=== PATIENT | male | born 1960 | race Caucasian/White ===

== ENCOUNTER → 2019-02-15 | Outpatient (CLI) | payer OTHER ==
[~2019-02-15] MED LIST: Zithromax250 MG PO
[2019-02-15 10:51] LABS: BASOPHILS ABSOLUTE AUTO 0.09 K/mm3 (0.00-0.23); BASOPHILS PERCENT AUTO 1 % (0-2); EOSINOPHILS ABSOLUTE AUTO 0.27 K/mm3 (0.00-0.68); EOSINOPHILS PERCENT AUTO 2 % (0-6); Hemoglobin 15.9 g/dL (13.5-17.5); IMMATURE GRAN ABSOLUTE AUTO 0.04 K/mm3 (0.00-0.10); IMMATURE GRAN PERCENT AUTO 0 % (0-1); LYMPHOCYTES ABSOLUTE AUTO 3.58 K/mm3 (0.84-5.20); LYMPHOCYTES PERCENT AUTO 30 % (21-46); MONOCYTES ABSOLUTE AUTO 1.09 K/mm3 (0.16-1.47); MONOCYTES PERCENT AUTO 9 % (4-13); Mean Corpuscular HGB 27.5 pg (26.0-34.0); Mean Corpuscular HGB Conc 32.4 g/dL (31.5-36.5); Mean Corpuscular Volume 85 fL (80-100); Mean Platelet Volume 9.5 fL (9.1-12.4); NEUTROPHILS ABSOLUTE AUTO 7.06 K/mm3 (1.96-9.15); NEUTROPHILS PERCENT AUTO 58 % (41-73); Platelet Count 249 K/mm3 (150-400); RDW Coefficient Variation 13.2 % (11.7-14.2); RDW Standard Deviation 41.1 fL (35.1-46.3); Red Blood Cell Count 5.78 M/mm3 (4.30-5.90); White Blood Cell Count 12.13 K/mm3 (4.00-11.30)
[2019-02-15 11:20] LABS: Alanine Aminotransfer (ALT/SGP 43 U/L (12-78); Albumin, Blood 3.5 g/dL (3.4-5.0); Albumin/Globulin Ratio 0.9 (0.8-1.8); Alk Phos 91 U/L (50-136); Anion Gap 7 mmol/L (6-16); Aspartate Aminotrans (AST/SGOT 19 U/L (12-37); Bilirubin, Total 0.2 mg/dL (0.1-1.0); Blood Urea Nitrogen 15 mg/dL (8-24); Bun/Creatinine Ratio 20.3 (12.0-20.0); CO2, Blood 25 mmol/L (21-32); Calcium, Blood 8.7 mg/dL (8.5-10.1); Chloride, Blood 109 mmol/L (98-108); Creatinine, Blood 0.74 mg/dL (0.60-1.20); Globulin, Blood 3.9 g/dL (2.2-4.0); Glomerular Filtration Rate >60 (60-); Glucose, Blood 136 mg/dL (70-99); Potassium, Blood 3.8 mmol/L (3.5-5.5); Sodium, Blood 141 mmol/L (136-145); Total Protein, Blood 7.4 g/dL (6.4-8.2)
== END ==
LOC: LAB SHORT 10:39 → LAB 10:39
PROVIDERS: Nurse Practitioner
DX: H53.8 Other visual disturbances (principal); E11.9 Type 2 diabetes mellitus without complications
CPT/HCPCS: 80053; 83036; 85025; 85651

== ENCOUNTER 2020-02-27 20:01 | Emergency (ER) | payer BC ==
[~2020-02-27] VITALS: Ht 175.3 cm; Wt 78.5 kg
[2020-02-27 21:21] LABS: BASOPHILS ABSOLUTE AUTO 0.07 K/mm3 (0.00-0.23); BASOPHILS PERCENT AUTO 1 % (0-2); EOSINOPHILS ABSOLUTE AUTO 0.42 K/mm3 (0.00-0.68); EOSINOPHILS PERCENT AUTO 4 % (0-6); Hematocrit 43.7 % (37.0-53.0); Hemoglobin 13.9 g/dL (13.5-17.5); IMMATURE GRAN ABSOLUTE AUTO 0.07 K/mm3 (0.00-0.10); IMMATURE GRAN PERCENT AUTO 1 % (0-1); LYMPHOCYTES ABSOLUTE AUTO 2.24 K/mm3 (0.84-5.20); LYMPHOCYTES PERCENT AUTO 22 % (21-46); MONOCYTES ABSOLUTE AUTO 1.05 K/mm3 (0.16-1.47); MONOCYTES PERCENT AUTO 10 % (4-13); Mean Corpuscular HGB 27.1 pg (26.0-34.0); Mean Corpuscular HGB Conc 31.8 g/dL (31.5-36.5); Mean Corpuscular Volume 85 fL (80-100); Mean Platelet Volume 8.9 fL (9.1-12.4); NEUTROPHILS ABSOLUTE AUTO 6.34 K/mm3 (1.96-9.15); NEUTROPHILS PERCENT AUTO 62 % (41-73); Platelet Count 214 K/mm3 (150-400); RDW Coefficient Variation 13.3 % (11.7-14.2); RDW Standard Deviation 41.8 fL (35.1-46.3); Red Blood Cell Count 5.13 M/mm3 (4.30-5.90); White Blood Cell Count 10.19 K/mm3 (4.00-11.30)
[2020-02-27 21:36] LABS: International Normalized Ratio 0.96; Prothrombin Time Results 10.3 Sec (9.7-11.5)
[2020-02-27 21:40] LABS: Alanine Aminotransfer (ALT/SGP 33 U/L (12-78); Albumin, Blood 2.9 g/dL (3.4-5.0); Albumin/Globulin Ratio 0.8 (0.8-1.8); Alk Phos 93 U/L (50-136); Anion Gap 4 mmol/L (6-16); Aspartate Aminotrans (AST/SGOT 21 U/L (12-37); Bilirubin, Total 0.1 mg/dL (0.1-1.0); Blood Urea Nitrogen 13 mg/dL (8-24); CO2, Blood 27 mmol/L (21-32); Calcium, Blood 8.1 mg/dL (8.5-10.1); Chloride, Blood 115 mmol/L (98-108); Creatinine, Blood 0.87 mg/dL (0.60-1.20); Globulin, Blood 3.5 g/dL (2.2-4.0); Glomerular Filtration Rate >60 (60-); Glucose, Blood 154 mg/dL (70-99); Potassium, Blood 3.9 mmol/L (3.5-5.5); Sodium, Blood 146 mmol/L (136-145); Total Protein, Blood 6.4 g/dL (6.4-8.2)
[2020-02-27] MEDS ORDERED: Norco 5-325 Ta1 EACH PO (21:42)
[2020-02-27] MEDS ORDERED: XARELTO15 MG PO (21:42)
== END 2020-02-27 22:33 | disposition home or self-care (01) ==
LOC: ER 20:01
PROVIDERS: Emergency Medicine
DX: I82.412 Acute embolism and thrombosis of left femoral vein (principal); I82.432 Acute embolism and thrombosis of left popliteal vein; F17.210 Nicotine dependence, cigarettes, uncomplicated; Z88.8 Allergy status to other drugs, medicaments and biological substances; Z91.018 Allergy to other foods
CPT/HCPCS: 36415; 80053; 85025; 85610; 85730; 93971; 99284-25; A9270

== ENCOUNTER → 2024-06-26 | Outpatient (CLI) | payer BC ==
[~2024-06-26] MED LIST changes: +Norco 5-325 Ta1 EACH PO; +XARELTO15 MG PO
[2024-06-26 15:40] LABS: BASOPHILS ABSOLUTE AUTO 0.08 K/mm3 (0.00-0.23); BASOPHILS PERCENT AUTO 1 % (0-2); EOSINOPHILS ABSOLUTE AUTO 0.15 K/mm3 (0.00-0.68); EOSINOPHILS PERCENT AUTO 1 % (0-6); Hematocrit 49.5 % (37.0-53.0); Hemoglobin 15.9 g/dL (13.5-17.5); IMMATURE GRAN ABSOLUTE AUTO 0.05 K/mm3 (0.00-0.10); IMMATURE GRAN PERCENT AUTO 0 % (0-1); LYMPHOCYTES ABSOLUTE AUTO 1.51 K/mm3 (0.84-5.20); LYMPHOCYTES PERCENT AUTO 11 % (21-46); MONOCYTES ABSOLUTE AUTO 1.14 K/mm3 (0.16-1.47); MONOCYTES PERCENT AUTO 8 % (4-13); Mean Corpuscular HGB 27.7 pg (26.0-34.0); Mean Corpuscular HGB Conc 32.1 g/dL (31.5-36.5); Mean Corpuscular Volume 86 fL (80-100); Mean Platelet Volume 8.9 fL (9.1-12.4); NEUTROPHILS PERCENT AUTO 79 % (41-73); Platelet Count 230 K/mm3 (150-400); RDW Standard Deviation 43.9 fL (35.1-46.3); Red Blood Cell Count 5.73 M/mm3 (4.30-5.90); White Blood Cell Count 13.73 K/mm3 (4.00-11.30)
[2024-06-26 15:51] LABS: Albumin, Blood 3.1 g/dL (3.4-5.0); Albumin/Globulin Ratio 0.7 (0.8-1.8); Bilirubin, Total 0.4 mg/dL (0.1-1.0); Bun/Creatinine Ratio 13.1 (12.0-20.0); Calcium, Blood 8.4 mg/dL (8.5-10.1); Creatinine, Blood 1.07 mg/dL (0.60-1.20); Globulin, Blood 4.5 g/dL (2.2-4.0); Total Protein, Blood 7.6 g/dL (6.4-8.2)
== END | disposition home or self-care (01) ==
LOC: LAB SHORT 15:36 → LAB 15:36
PROVIDERS: Physician Assistant Medical
DX: R07.81 Pleurodynia (principal)
CPT/HCPCS: 80053; 85025; 85379

== ENCOUNTER 2025-01-25 07:10 | Emergency (ER) | payer BC ==
[~2025-01-25] VITALS: Ht 175.3 cm; Wt 81.7 kg
[2025-01-25] MEDS ORDERED: Metoclopramide HCl 5MG / ML 2ML Vial IV ONE (07:30)
[2025-01-25 07:42] LABS: BASOPHILS ABSOLUTE AUTO 0.12 K/mm3 (0.00-0.23); BASOPHILS PERCENT AUTO 1 % (0-2); EOSINOPHILS ABSOLUTE AUTO 0.14 K/mm3 (0.00-0.68); EOSINOPHILS PERCENT AUTO 1 % (0-6); Hematocrit 46.4 % (37.0-53.0); Hemoglobin 15.5 g/dL (13.5-17.5); IMMATURE GRAN ABSOLUTE AUTO 0.09 K/mm3 (0.00-0.10); IMMATURE GRAN PERCENT AUTO 1 % (0-1); LYMPHOCYTES ABSOLUTE AUTO 3.54 K/mm3 (0.84-5.20); LYMPHOCYTES PERCENT AUTO 19 % (21-46); MONOCYTES ABSOLUTE AUTO 1.24 K/mm3 (0.16-1.47); MONOCYTES PERCENT AUTO 7 % (4-13); Mean Corpuscular HGB 27.7 pg (26.0-34.0); Mean Corpuscular HGB Conc 33.4 g/dL (31.5-36.5); Mean Corpuscular Volume 83 fL (80-100); Mean Platelet Volume 9.3 fL (9.1-12.4); NEUTROPHILS ABSOLUTE AUTO 13.13 K/mm3 (1.96-9.15); NEUTROPHILS PERCENT AUTO 72 % (41-73); Platelet Count 269 K/mm3 (150-400); RDW Coefficient Variation 13.8 % (11.7-14.2); RDW Standard Deviation 41.8 fL (35.1-46.3); Red Blood Cell Count 5.59 M/mm3 (4.30-5.90); White Blood Cell Count 18.26 K/mm3 (4.00-11.30)
[2025-01-25] MEDS ORDERED: Pantoprazole Sodium 40 MG Injection IV ONE (07:50)
[2025-01-25] MEDS ORDERED: FentaNYL Citrate 50 MCG/ML 2 ML Injection IV ONE ×2 (07:50→10:15)
[2025-01-25] MEDS ORDERED: NiCARdipine HCL 50 MG in NS 250 ML IV SCH (07:50)
[2025-01-25 08:01] LABS: Albumin, Blood 3.4 g/dL (3.4-5.0); Albumin/Globulin Ratio 0.9 (0.8-1.8); Bilirubin, Total 0.2 mg/dL (0.1-1.0); Bun/Creatinine Ratio 25.2 (12.0-20.0); Calcium, Blood 8.6 mg/dL (8.5-10.1); Creatinine, Blood 0.79 mg/dL (0.60-1.20); Globulin, Blood 3.8 g/dL (2.2-4.0); Potassium, Blood 3.8 mmol/L (3.5-5.5); Total Protein, Blood 7.2 g/dL (6.4-8.2)
[2025-01-25] MEDS ORDERED: Ondansetron HCl 2 MG / ML 2ML Vial IV ONE (08:40)
--- NOTE | 2025-01-25 09:14 | NUR ---
Aki (pt) is awake but unable to communicate verbally. Pt appears drowsy. Pt was admitted for a brain hemmorage and is soon to be discharged to [facility] for further care. Pt is joined at bedside by Wilfred(spouse) and her sister. Spouse has a clear deysi connection and uses this to inform her perspective on her current situation. She remains hopeful in the midst of uncertainty. Provided compassionate listening and normalized pt's spouse's experience and prayed with her. She thanked me and ammunition storekeeper sabin who was also present.
[2025-01-25 11:00] VITALS: BP 146/92
== END 2025-01-25 11:05 | disposition home or self-care (01) ==
LOC: ER 07:10
PROVIDERS: Student in an Organized Health Care Education/Training Program
DX: I61.4 Nontraumatic intracerebral hemorrhage in cerebellum (principal); I82.402 Acute embolism and thrombosis of unspecified deep veins of left lower extremity; Z79.01 Long term (current) use of anticoagulants; Z86.711 Personal history of pulmonary embolism; Z88.8 Allergy status to other drugs, medicaments and biological substances; Z79.82 Long term (current) use of aspirin; F17.200 Nicotine dependence, unspecified, uncomplicated
CPT/HCPCS: 70450; 70496; 70498; 80053; 83690; 83735; 85025; 93005; 93010; 96374; 96375; 96376; 99285-25; J2405; J2470; J2765; J3010; J7050; J7168; Q9967

== ENCOUNTER 2025-02-21 09:30 | Inpatient (IN) | payer BC ==
[~2025-02-21] VITALS: Ht 175.3 cm; Wt 70.4 kg
[2025-02-21 10:42] LABS: BASOPHILS ABSOLUTE AUTO 0.04 K/mm3 (0.00-0.23); BASOPHILS PERCENT AUTO 0 % (0-2); EOSINOPHILS ABSOLUTE AUTO 0.29 K/mm3 (0.00-0.68); EOSINOPHILS PERCENT AUTO 3 % (0-6); Hematocrit 48.9 % (37.0-53.0); Hemoglobin 16.2 g/dL (13.5-17.5); IMMATURE GRAN ABSOLUTE AUTO 0.05 K/mm3 (0.00-0.10); IMMATURE GRAN PERCENT AUTO 1 % (0-1); LYMPHOCYTES ABSOLUTE AUTO 1.64 K/mm3 (0.84-5.20); LYMPHOCYTES PERCENT AUTO 15 % (21-46); MONOCYTES ABSOLUTE AUTO 1.05 K/mm3 (0.16-1.47); MONOCYTES PERCENT AUTO 10 % (4-13); Mean Corpuscular HGB 27.6 pg (26.0-34.0); Mean Corpuscular HGB Conc 33.1 g/dL (31.5-36.5); Mean Corpuscular Volume 83 fL (80-100); Mean Platelet Volume 8.8 fL (9.1-12.4); NEUTROPHILS ABSOLUTE AUTO 7.73 K/mm3 (1.96-9.15); NEUTROPHILS PERCENT AUTO 72 % (41-73); Platelet Count 155 K/mm3 (150-400); RDW Coefficient Variation 13.4 % (11.7-14.2); RDW Standard Deviation 40.8 fL (35.1-46.3); Red Blood Cell Count 5.88 M/mm3 (4.30-5.90)
[2025-02-21 11:03] LABS: Albumin, Blood 2.8 g/dL (3.4-5.0); Albumin/Globulin Ratio 0.7 (0.8-1.8); Bilirubin, Total 0.7 mg/dL (0.1-1.0); Bun/Creatinine Ratio 23.1 (12.0-20.0); Calcium, Blood 8.6 mg/dL (8.5-10.1); Creatinine, Blood 0.65 mg/dL (0.60-1.20); Globulin, Blood 3.8 g/dL (2.2-4.0); Potassium, Blood 4.3 mmol/L (3.5-5.5); Total Protein, Blood 6.6 g/dL (6.4-8.2)
[2025-02-21 11:16] LABS: International Normalized Ratio 1.02; Prothrombin Time Results 10.9 Sec (9.7-11.5)
[2025-02-21] MEDS ORDERED: Ondansetron HCl 2 MG / ML 2ML Vial IV PRN (14:45)
[2025-02-21] MEDS ORDERED: Scopolamine Hydrobromide Patch TOP SCH (15:05)
[2025-02-21] MEDS ORDERED: Meclizine HCl 25 MG Tab PO PRN (15:10)
[2025-02-21] MEDS ORDERED: OxyCODONE HCL 5 MG TAB PO PRN (15:15)
[2025-02-21 15:53] VITALS: BP 115/75
[2025-02-21] MEDS ORDERED: Acetaminophen 325 MG TABLET PO PRN (16:30)
--- NOTE | 2025-02-21 18:55 | NUR ---
SHIFT SUMMARY; ASSUMED CARE FROM ED IN LATE AFTERNOON. TRANSFERS SELF FROM GURNEY TO BED WITH 1 PERSON ASSIST. FAMILY AT BEDSIDE. MEDICATED PER EMAR FOR NAUSEA AND HEADACHE. DINNER TRAY PROVIDED, USING CALL LIGHT AND ABLE TO MAKE NEEDS KNOWN. WILL CONTINUE TO MONITOR AND TREAT UNTIL REPORT GIVEN TO NOC SHIFT RN. MRI SCREENING FORM FAXED TO RADIOLOGY.
[2025-02-21 20:21] VITALS: BP 111/67
[2025-02-21] MEDS ORDERED: Tamsulosin HCl 0.4 MG Cap PO SCH (21:00)
[2025-02-21] MEDS ORDERED: Methocarbamol 500 MG Tab PO SCH (21:00)
[2025-02-21 23:20] VITALS: BP 91/68
[2025-02-22 04:14] VITALS: BP 108/79
--- NOTE | 2025-02-22 05:37 | NUR ---
SHIFT SUMMARY PATIENT SOMNULENT BUT WAKES EASILY TO VERBAL STIMULI. PATIENT REQUESTING TO BE LEFT ALONE DURING THE NIGHT TO SLEEP. NO NEURO CHANGES DURING THE NIGHT. BP STABLE. TELE READING SR 60s. ON RA WITH SPO2 >90%. PATIENT MEDICATED PRIOR TO MANAGER SUPPORT FOR NAUSEA, HAS DENIED NAUSEA ALL OF MANAGER SUPPORT. STANDBY ASSIST IN ROOM/BATHROOM, ADEQUATE OUTPUT. PATIENT AWAITNG MRI THIS MORNING, SCREENING TO BE COMPLETED AND FAXED BACK TO IMAGING. NO OTHER CHANGES DURING THE NIGHT, WILL REPORT TO DAY SHIFT RN.
[2025-02-22 07:49] VITALS: BP 107/70
[2025-02-22 08:39] LABS: BASOPHILS ABSOLUTE AUTO 0.04 K/mm3 (0.00-0.23); BASOPHILS PERCENT AUTO 1 % (0-2); EOSINOPHILS ABSOLUTE AUTO 0.29 K/mm3 (0.00-0.68); EOSINOPHILS PERCENT AUTO 3 % (0-6); Hematocrit 45.3 % (37.0-53.0); Hemoglobin 14.9 g/dL (13.5-17.5); IMMATURE GRAN ABSOLUTE AUTO 0.03 K/mm3 (0.00-0.10); IMMATURE GRAN PERCENT AUTO 0 % (0-1); LYMPHOCYTES ABSOLUTE AUTO 1.17 K/mm3 (0.84-5.20); LYMPHOCYTES PERCENT AUTO 14 % (21-46); MONOCYTES ABSOLUTE AUTO 0.81 K/mm3 (0.16-1.47); MONOCYTES PERCENT AUTO 9 % (4-13); Mean Corpuscular HGB 27.3 pg (26.0-34.0); Mean Corpuscular HGB Conc 32.9 g/dL (31.5-36.5); Mean Corpuscular Volume 83 fL (80-100); Mean Platelet Volume 9.2 fL (9.1-12.4); NEUTROPHILS ABSOLUTE AUTO 6.25 K/mm3 (1.96-9.15); NEUTROPHILS PERCENT AUTO 73 % (41-73); Platelet Count 135 K/mm3 (150-400); RDW Coefficient Variation 13.6 % (11.7-14.2); Red Blood Cell Count 5.46 M/mm3 (4.30-5.90); White Blood Cell Count 8.59 K/mm3 (4.00-11.30)
[2025-02-22 08:56] LABS: Bun/Creatinine Ratio 16.7 (12.0-20.0); Calcium, Blood 8.5 mg/dL (8.5-10.1); Creatinine, Blood 0.72 mg/dL (0.60-1.20); Potassium, Blood 4.1 mmol/L (3.5-5.5)
[2025-02-22] MEDS ORDERED: Atorvastatin 40 MG Tab PO SCH (09:00)
--- NOTE | 2025-02-22 10:06 | NUR ---
Care assumption Pt A&O x4. NIH stroke scale: 0. Pt rating headache 11/15. VSS. Spo2 > 92% on RA. Monitor showing SR w/ BBB, HR 70s-80s. Pt reporting "I feel a lot better." Pt awaiting MRI of head.
[2025-02-22 11:40] VITALS: BP 111/71
[2025-02-22 15:02] VITALS: BP 111/70
--- NOTE | 2025-02-22 17:17 | NUR ---
MD NOTIFIED PT UP TO BATHROOM, REPORTING FEELING NAUSEOUS. THIS RN GAVE PRN IV ZOFRAN PER EMAR. PT THEN ASSISTED BACK TO BED FROM BATHROOM W/ PT REPORT THEN OF FEELING DIZZY. PT ASSISTED TO SIT ON EDGE OF BED. PT SITTING UPRIGHT ON EDGE OF BED, TALKING TO S/O THEN SUDDENLY FELL BACK ON BED, UNRESPONSIVE. MONITOR NOTED W/ HR DROP TO 50s. PT MAKING SNORING SOUND. PT YELLING "HE'S HAVING A SEIZURE!" NO SEIZURE LIKE ACTIVITY NOTED. PT LIPS/FACE LOST COLOR, TURNING PURPLE/BLUE. PT REPOSITIONED SECURELY IN BED W/ HOB ELEVATED. PT NOT BREATHING. AMBU BAG READIED, BUT PT THEN WAKING, OPENING EYES & BREATHING ON OWN. MD TO BEDSIDE. PT REPORTING PAIN LOWER ABD & STATING FEELING NEED TO POOP. MD ORDER FOR LABS. PT VSS. SPO2 > 92% ON RA. MONITOR SHOWING NSR. PT REPORTING FEELING TIRED.
[2025-02-22] MEDS ORDERED: Bisacodyl 10 MG Supp PR PRN (17:20)
[2025-02-22 17:36] LABS: BASOPHILS ABSOLUTE AUTO 0.04 K/mm3 (0.00-0.23); BASOPHILS PERCENT AUTO 0 % (0-2); EOSINOPHILS ABSOLUTE AUTO 0.26 K/mm3 (0.00-0.68); EOSINOPHILS PERCENT AUTO 2 % (0-6); Hematocrit 49.5 % (37.0-53.0); Hemoglobin 16.3 g/dL (13.5-17.5); IMMATURE GRAN ABSOLUTE AUTO 0.05 K/mm3 (0.00-0.10); IMMATURE GRAN PERCENT AUTO 1 % (0-1); LYMPHOCYTES ABSOLUTE AUTO 1.29 K/mm3 (0.84-5.20); LYMPHOCYTES PERCENT AUTO 12 % (21-46); MONOCYTES ABSOLUTE AUTO 0.61 K/mm3 (0.16-1.47); MONOCYTES PERCENT AUTO 6 % (4-13); Mean Corpuscular HGB 27.2 pg (26.0-34.0); Mean Corpuscular HGB Conc 32.9 g/dL (31.5-36.5); Mean Corpuscular Volume 83 fL (80-100); Mean Platelet Volume 8.9 fL (9.1-12.4); NEUTROPHILS ABSOLUTE AUTO 8.82 K/mm3 (1.96-9.15); NEUTROPHILS PERCENT AUTO 80 % (41-73); Platelet Count 137 K/mm3 (150-400); RDW Coefficient Variation 13.6 % (11.7-14.2); RDW Standard Deviation 40.9 fL (35.1-46.3); Red Blood Cell Count 5.99 M/mm3 (4.30-5.90); White Blood Cell Count 11.07 K/mm3 (4.00-11.30)
[2025-02-22 18:19] LABS: Albumin, Blood 2.8 g/dL (3.4-5.0); Albumin/Globulin Ratio 0.7 (0.8-1.8); Bilirubin, Total 0.6 mg/dL (0.1-1.0); Bun/Creatinine Ratio 25.1 (12.0-20.0); Calcium, Blood 8.4 mg/dL (8.5-10.1); Creatinine, Blood 0.68 mg/dL (0.60-1.20); Globulin, Blood 3.8 g/dL (2.2-4.0); Potassium, Blood 4.1 mmol/L (3.5-5.5); Total Protein, Blood 6.6 g/dL (6.4-8.2)
--- NOTE | 2025-02-22 18:33 | NUR ---
Update / End of Shift Pt provided w/ suppository per MD order. Pt then w/ extra large, incontinent loose brown BM in bed. Pt reporting feeling "worn out." VSS. S/o at bedside.
[2025-02-22 21:09] VITALS: BP 134/83
[2025-02-22 23:35] LABS: Adenovirus F 40/41 Not Detected (NOT DETECT); Astrovirus Not Detected (NOT DETECT); Campylobacter Sp Not Detected (NOT DETECT); Cryptosporidium Not Detected (NOT DETECT); Cyclospora Cayetanensis Not Detected (NOT DETECT); E. Coli O157 Not Detected (NOT DETECT); Entamoeba Histolytica Not Detected (NOT DETECT); Enteroaggregative E. coli-EAEC Not Detected (NOT DETECT); Enteropathogenic E. coli-EPEC Not Detected (NOT DETECT); Enterotoxigenic E. coli-ETEC Not Detected (NOT DETECT); Giardia Lamblia Not Detected (NOT DETECT); Norovirus GI/GII Not Detected (NOT DETECT); Plesiomonas Shigelloides Not Detected (NOT DETECT); Rotavirus A Not Detected (NOT DETECT); Salmonella Sp Not Detected (NOT DETECT); Sapovirus Not Detected (NOT DETECT); Shiga Toxin-prod E. coli-STEC Not Detected (NOT DETECT); Shigella/Enteroin E. coli-EIEC Not Detected (NOT DETECT); Vibrio Cholerae Not Detected (NOT DETECT); Vibrio Sp Not Detected (NOT DETECT); Yersinia Enterocolitica Not Detected (NOT DETECT)
[2025-02-22 23:41] LABS: Source, Urine Clean Catch
[2025-02-22 23:44] LABS: Bilirubin, Urine Neg (Neg); Blood, Urine 5+ (Neg); Glucose Qualitative, Urine Neg (Neg); Ketones, Urine 1+ (Neg); Leukocyte Esterase, Urine 1+ (Neg); Nitrite, Urine Neg (Neg); Protein, Urine 4+ (Neg); Urobilinogen, Urine NORM (Normal); pH, Urine 6.5 (5.0-8.0)
[2025-02-22 23:45] VITALS: BP 132/83
[2025-02-22 23:51] LABS: Appearance, Urine Turbid (Clear); Bacteria Rare /hpf; Color, Urine Red (P-Yellow); Red Blood Cells, Urine TNTC /hpf (0-2); Squamous Epithelial Cells Rare /hpf (Few)
[2025-02-23] MEDS ORDERED: CefTRIAXone Sodium 1,000 MG in NS 100 ML IV SCH (00:29)
--- NOTE | 2025-02-23 01:10 | NUR ---
UPDATE PATIENT VOIDED 250MLs INTO URINAL AND SHOWED THIS RN. PATIENT ALSO STATING HE FEELS IF HE IS URINATING SHARDS OF GLASS. URINE IS DARK MAROON IN COLOR. CALL PLACED TO HOSPITALIST WITH KATHERINE. UA COLLECTED AND SENT TO LAB. 0030 - ORDERS PLACED FOR CONTINUOUS BLADDER IRRGATION AND IV ANTIBIOTICS. 3 WAY HUNT PLACED AND CBI SET UP. ABOUT 50mls DARK URINE OUT, IRRIGATED UNTIL CLEAR LIQUID DRAINING. PATIENT TOLERATED PROCEDURE WELL.
[2025-02-23 04:11] VITALS: BP 106/75
--- NOTE | 2025-02-23 05:51 | NUR ---
SHIFT SUMMARY PATIENT ALERT, ORIENTED x4. PATIENT REPORTING FEELING DISORIENTED BUT IS ABLE TO ANSWER ALL QUESTIONS AND ABLE TO MAKE NEEDS KNOWN. NIH NEGATIVE. BP STABLE. TELE READING SR. ON RA WITH SPO2 >90%. SEE PREVIOUS NOTE REGARDING PATIENT'S URINE. BLADDER IRRIGATION SET UP WITH 3 WAY HUNT. INTERMITTENTLY FLUSHING AT THIS TIME. URINE WAS ORIGINALLY DARK MAROON IN COLOR, NOW LIGHT PINK/ORANGE WITH OCCASIONAL CLOTS. PATIENT TOLERATING WELL. MEDICATED PER EMAR FOR PAIN. PATIENT WITH EPISODES OF DIARRHEA, STOOL SAMPLE SENT. NO OTHER CHANGES DURING THE NIGHT, WILL REPORT TO DAY SHIFT RN.
[2025-02-23 06:08] LABS: BASOPHILS ABSOLUTE AUTO 0.05 K/mm3 (0.00-0.23); BASOPHILS PERCENT AUTO 0 % (0-2); EOSINOPHILS ABSOLUTE AUTO 0.01 K/mm3 (0.00-0.68); EOSINOPHILS PERCENT AUTO 0 % (0-6); Hematocrit 47.3 % (37.0-53.0); IMMATURE GRAN ABSOLUTE AUTO 0.07 K/mm3 (0.00-0.10); IMMATURE GRAN PERCENT AUTO 0 % (0-1); LYMPHOCYTES ABSOLUTE AUTO 0.92 K/mm3 (0.84-5.20); LYMPHOCYTES PERCENT AUTO 6 % (21-46); MONOCYTES ABSOLUTE AUTO 0.88 K/mm3 (0.16-1.47); MONOCYTES PERCENT AUTO 6 % (4-13); Mean Corpuscular HGB 27.5 pg (26.0-34.0); Mean Corpuscular HGB Conc 33.8 g/dL (31.5-36.5); Mean Corpuscular Volume 81 fL (80-100); Mean Platelet Volume 9.1 fL (9.1-12.4); NEUTROPHILS ABSOLUTE AUTO 13.89 K/mm3 (1.96-9.15); NEUTROPHILS PERCENT AUTO 88 % (41-73); Platelet Count 122 K/mm3 (150-400); RDW Coefficient Variation 13.8 % (11.7-14.2); RDW Standard Deviation 40.3 fL (35.1-46.3); Red Blood Cell Count 5.81 M/mm3 (4.30-5.90); White Blood Cell Count 15.82 K/mm3 (4.00-11.30)
[2025-02-23 06:28] LABS: Albumin, Blood 2.8 g/dL (3.4-5.0); Albumin/Globulin Ratio 0.7 (0.8-1.8); Bilirubin, Total 0.5 mg/dL (0.1-1.0); Bun/Creatinine Ratio 30.3 (12.0-20.0); Calcium, Blood 8.8 mg/dL (8.5-10.1); Creatinine, Blood 0.82 mg/dL (0.60-1.20); Globulin, Blood 4.1 g/dL (2.2-4.0); Total Protein, Blood 6.9 g/dL (6.4-8.2)
[2025-02-23 07:23] VITALS: BP 107/79
[2025-02-23] MEDS ORDERED: Heparin Sodium,Porcine 5,000 UNIT/0.5 ML SDV SC SCH (08:00)
[2025-02-23] MEDS ORDERED: Multivitamins 1 Tab PO SCH (09:00)
[2025-02-23 12:33] VITALS: BP 106/71
[2025-02-23 15:48] VITALS: BP 101/83
--- NOTE | 2025-02-23 18:23 | NUR ---
SHIFT SUMMARY PATIENT IS AOX4 ABLE TO MAKE NEEDS KNOWN. HE DENIES CHEST PAIN AND SOB. HE IS ABLE TO MOVE ALL EXTREMETIES EQUALLY AND DENIES ANY NUMBNESS OR TINGLING. HE DOES SAY HIS RIGHT SIDE FEELS WEAKER AND HIS DOUBLE VISION IS IMPROVED BUT STILL PRESENT. HE WAS ON CBI IN THE MORNING AND IT WAS REDUCED TO 1 DROP EVERY 10 SECONDS. URINE REMAINED YELLOW AND CLEAR. THE CBI WAS CLAMPED AT 1700. VITALS ARE STABLE AND O2 SATS REAMAIN ABOVE 92% ON ROOM AIR.
[2025-02-23 19:30] VITALS: BP 105/70
[2025-02-24] VITALS (7 sets, daily range): BP systolic 93–114; BP diastolic 62–79
[2025-02-24 04:17] LABS: BASOPHILS ABSOLUTE AUTO 0.06 K/mm3 (0.00-0.23); BASOPHILS PERCENT AUTO 1 % (0-2); EOSINOPHILS ABSOLUTE AUTO 0.43 K/mm3 (0.00-0.68); EOSINOPHILS PERCENT AUTO 4 % (0-6); Hematocrit 45.4 % (37.0-53.0); Hemoglobin 15.1 g/dL (13.5-17.5); IMMATURE GRAN ABSOLUTE AUTO 0.04 K/mm3 (0.00-0.10); IMMATURE GRAN PERCENT AUTO 0 % (0-1); LYMPHOCYTES ABSOLUTE AUTO 1.07 K/mm3 (0.84-5.20); LYMPHOCYTES PERCENT AUTO 10 % (21-46); MONOCYTES PERCENT AUTO 12 % (4-13); Mean Corpuscular HGB 27.5 pg (26.0-34.0); Mean Corpuscular HGB Conc 33.3 g/dL (31.5-36.5); Mean Corpuscular Volume 83 fL (80-100); Mean Platelet Volume 9.2 fL (9.1-12.4); NEUTROPHILS PERCENT AUTO 73 % (41-73); Platelet Count 111 K/mm3 (150-400); RDW Coefficient Variation 13.9 % (11.7-14.2); RDW Standard Deviation 41.8 fL (35.1-46.3); Red Blood Cell Count 5.49 M/mm3 (4.30-5.90)
--- NOTE | 2025-02-24 04:17 | NUR ---
SHIFT SUMMARY: PT IS ALERT AND ORIENTED X 4, REQUIRES EXTRA TIME BUT IS ABLE TO MKE NEEDS KNOWN, PT ENDORSES WEAKNESS TO R SIDE OF BODY BUT NEURO SHOWNS NO EVIDENCE OF DRIFT OR NEGLECT, LUNGS ARE CLEAR ON RA, NSR ON TELLE, CBI IN PLACE BUT CLAMMPED PT WITH YELLOW URINE NOTED, PRN PAIN MEDICATION GIVEN X1 THIS SHIFT, PT HAS CALL LIGHT AND FREQUENTLY USED ITEMS WITH IN REACH AT THIS ITME
[2025-02-24 04:46] LABS: Albumin, Blood 2.7 g/dL (3.4-5.0); Albumin/Globulin Ratio 0.7 (0.8-1.8); Bilirubin, Total 0.6 mg/dL (0.1-1.0); Bun/Creatinine Ratio 29.2 (12.0-20.0); Calcium, Blood 8.6 mg/dL (8.5-10.1); Creatinine, Blood 0.79 mg/dL (0.60-1.20); Globulin, Blood 3.8 g/dL (2.2-4.0); Potassium, Blood 4.4 mmol/L (3.5-5.5); Total Protein, Blood 6.5 g/dL (6.4-8.2)
[2025-02-24] MEDS ORDERED: Methocarbamol 500 MG Tab PO PRN (15:50)
--- NOTE | 2025-02-24 18:16 | NUR ---
CLIENT RELATIONS SPECIALIST SHIFT ASSESSMENT: PT IS ALERT AND ORIENTED X4, ABLE TO COMMUNICATE AND MAKE NEEDS KNOWN. TELE IN PLACE, SINUS TACH IN 100-110'S, PATIENT BECOMES MORE TACHYCARDIC WITH REPOSITIONING AND AMBULATION. SPO2 >90% ON RA, DIMINISHED BREATH SOUNDS NOTED THROUGHOUT. PATIENT REPORTS DOUBLE VISION AND NAUSEA DURING WHEN REPOSITIONING. PATIENT REPORTS CHRONIC BACK PAIN THAT IS BEING MANAGED PER EMAR AND NONPHARMACOLOGICAL INTERVENTIONS, PATIENT REPORTED RELIEF THROUGHOUT SHIFT. HUNT CATHETER REMOVED DURING SHIFT PER PROVIDER ORDERS, 300ML OF ZACHARY COLORED URINE NOTED IN BAG. PATIENT WAS ABLE TO VOID INDEPENDENTLY LATER IN SHIFT. PATIENT ABLE TO AMBULATE WITH ASSISTANCE, FREQUENT BREAKS ARE REQUIRED DUE TO TACHYCARDIA AND GENERALIZED WEAKNESS. PT/OT ASSESSED PATIENT TODAY, SEE NOTES IN CHART. PATIENT IS RESTING, BED IN LOWEST POSITION, CALL LIGHT WITHIN REACH.
[2025-02-24] MEDS ORDERED: Lactobacil 2-S.Thermo-Bifido 1 1 Cap PO SCH (21:00)
--- NOTE | 2025-02-24 21:43 | NUR ---
NURSES NOTE ASSUMED CARE OF PT AT 1900, PT ALERT AND ORIENTED X4, FOLLOWS COMMANDS, ABLE TO MAKE NEEDS KNOWN, AFEBRILE, VSS, PIV TO RIGHT HAND PATENT AND CLAMPED, NICK HAND GRASP EQUAL, GENERALIZED WEAKNESS NOTED, WEN C/O [place] AT THIS TIME, SCHEDULED MEDS GIVEN PO WITH PRN ROBAXIN FOR CHRONIC BACK PAIN, PT SWALLOWED WITHOUT DIFFICULTY, IVPB GIVEN, REPORT CALLED TO [facility] FOR TRANSFER TO ROOM 329
--- NOTE | 2025-02-24 22:40 | NUR ---
TRANSFER NOTE 64 YR OLD MALE RECEIVED FROM PCU WITH DX OF STROKE LIKE SYMPTOMS. REPORTED HX CVA WITH PREVIOUS CRANIOTOMY. ALERT TO QUESTIONS ASKED. DENIED LOSS OF FEELING. ORIENTED TO UE OF CALL LIGHT. CALL LIGHT IN REACH, RAILS UP X 3. BED IN LOW POSITION FOR SAFETY. WILL CONT TO MONITOR
--- NOTE | 2025-02-25 04:59 | NUR ---
Branch Manager Trainee Shift Summary Patient admitted for stroke like symptoms. Transferred to Med floor from PCU. VSS. Alert and oriented x4. NIH stroke scale score of 1 throughout the night. Cooperative with care. Denies loss of feeling. Bed rails up x2. Resting quietly between assessments. No apparent acute distress. Bed in lowest position for safetly, call light within reach. Will continue to monitor.
[2025-02-25 05:10] VITALS: BP 109/70
[2025-02-25 05:39] LABS: BASOPHILS ABSOLUTE AUTO 0.06 K/mm3 (0.00-0.23); BASOPHILS PERCENT AUTO 1 % (0-2); EOSINOPHILS PERCENT AUTO 4 % (0-6); Hematocrit 42.7 % (37.0-53.0); Hemoglobin 14.5 g/dL (13.5-17.5); IMMATURE GRAN ABSOLUTE AUTO 0.05 K/mm3 (0.00-0.10); IMMATURE GRAN PERCENT AUTO 1 % (0-1); LYMPHOCYTES ABSOLUTE AUTO 1.45 K/mm3 (0.84-5.20); LYMPHOCYTES PERCENT AUTO 15 % (21-46); MONOCYTES ABSOLUTE AUTO 1.11 K/mm3 (0.16-1.47); MONOCYTES PERCENT AUTO 11 % (4-13); Mean Corpuscular HGB 27.6 pg (26.0-34.0); Mean Corpuscular Volume 81 fL (80-100); Mean Platelet Volume 9.2 fL (9.1-12.4); NEUTROPHILS ABSOLUTE AUTO 6.96 K/mm3 (1.96-9.15); NEUTROPHILS PERCENT AUTO 69 % (41-73); Platelet Count 110 K/mm3 (150-400); RDW Standard Deviation 41.1 fL (35.1-46.3); Red Blood Cell Count 5.25 M/mm3 (4.30-5.90); White Blood Cell Count 10.03 K/mm3 (4.00-11.30)
[2025-02-25 06:03] LABS: Bun/Creatinine Ratio 34.7 (12.0-20.0); Calcium, Blood 8.7 mg/dL (8.5-10.1); Creatinine, Blood 0.61 mg/dL (0.60-1.20); Potassium, Blood 4.4 mmol/L (3.5-5.5)
[2025-02-25 07:27] VITALS: BP 109/68
[2025-02-25 11:26] VITALS: BP 105/71
[2025-02-25] MEDS ORDERED: NS 1,000 ML IV SCH (11:30)
[2025-02-25 15:30] VITALS: BP 124/66
[2025-02-25] MEDS ORDERED: ATOR80 PO (16:55)
[2025-02-25] MEDS ORDERED: TAMS.4ER PO (16:56)
[2025-02-25] MEDS ORDERED: TRANSDERM-SCOP1 EA10 TD (16:56)
--- NOTE | 2025-02-25 18:07 | NUR ---
NO ACUTE CHANGES, ALERT AND ORIENTED X4, CALLS APPROPRIATELY. PT IS WEAK 1 PERSON ASSIST, PLAN TO D/C TO SNF.
[2025-02-25 19:11] VITALS: BP 107/71
[2025-02-26 00:10] VITALS: BP 110/77
[2025-02-26 04:48] VITALS: BP 97/57
[2025-02-26 05:29] LABS: BASOPHILS ABSOLUTE AUTO 0.06 K/mm3 (0.00-0.23); BASOPHILS PERCENT AUTO 1 % (0-2); EOSINOPHILS ABSOLUTE AUTO 0.38 K/mm3 (0.00-0.68); EOSINOPHILS PERCENT AUTO 4 % (0-6); Hemoglobin 12.8 g/dL (13.5-17.5); IMMATURE GRAN ABSOLUTE AUTO 0.05 K/mm3 (0.00-0.10); IMMATURE GRAN PERCENT AUTO 1 % (0-1); LYMPHOCYTES ABSOLUTE AUTO 1.55 K/mm3 (0.84-5.20); LYMPHOCYTES PERCENT AUTO 17 % (21-46); MONOCYTES ABSOLUTE AUTO 1.08 K/mm3 (0.16-1.47); MONOCYTES PERCENT AUTO 12 % (4-13); Mean Corpuscular HGB 27.7 pg (26.0-34.0); Mean Corpuscular HGB Conc 33.7 g/dL (31.5-36.5); Mean Corpuscular Volume 82 fL (80-100); Mean Platelet Volume 9.3 fL (9.1-12.4); NEUTROPHILS ABSOLUTE AUTO 6.28 K/mm3 (1.96-9.15); NEUTROPHILS PERCENT AUTO 67 % (41-73); Platelet Count 109 K/mm3 (150-400); RDW Coefficient Variation 14.1 % (11.7-14.2); RDW Standard Deviation 41.9 fL (35.1-46.3); Red Blood Cell Count 4.62 M/mm3 (4.30-5.90)
[2025-02-26 05:52] LABS: Bun/Creatinine Ratio 19.6 (12.0-20.0); Calcium, Blood 8.3 mg/dL (8.5-10.1); Creatinine, Blood 0.71 mg/dL (0.60-1.20); Potassium, Blood 4.2 mmol/L (3.5-5.5)
--- NOTE | 2025-02-26 06:42 | NUR ---
SHIFT SUMMARY AT START OF SHIFT, SPOUSE AT BEDSIDE. PT LYING IN BED. 2039, PT STATED 5/10 PAIN IN LEFT SHOULDER. MEDICATED PER EMAR. PT WATCHING TV. CALL LIGHT IN REACH. UPON REASSESSMENT, PT STATED 0/10 PAIN. PT SLEEPING PEACEFULLY. CALL LIGHT WITHIN REACH. PT NS REPLACED. PT STILL SLEEPING SOUNDLY. CALL LIGHT WITHIN REACH. APPROX [id number], WHILE LAB IN ROOM, PT ARMBAND REPLACED. PT DENIED PAIN AT THIS TIME, BUT STATED HE WAS NAUSEOUS. PT MEDICATED PER EMAR. FORECLOSURE SPECIALIST BROUGHT IN FRESH ICE WATER. PT RESTING IN BED AT THIS TIME. CALL LIGHT WITHIN REACH.
[2025-02-26 07:31] VITALS: BP 110/84
[2025-02-26] MEDS ORDERED: Glycerin Adult Supp 1 EA PR ONE (10:55)
[2025-02-26 11:26] VITALS: BP 105/76
[2025-02-26] MEDS ORDERED: Acetaminophen325 M1 PO (11:58)
[2025-02-26] MEDS ORDERED: CEPH500 PO (11:59)
[2025-02-26] MEDS ORDERED: MOTION RELIEF25 MG PO (11:59)
[2025-02-26] MEDS ORDERED: VISBIOME 112.51 EACH PO (11:59)
--- NOTE | 2025-02-26 13:12 | NUR ---
[facility] given to abby marie. pt left with all personal items. alert and oriented x4, r/a
== END 2025-02-26 13:01 | DRG 65 ==
LOC: ER 09:30 → PCU 09:31 → MEDS 02-23 15:21 → PCU 02-23 15:21 → MEDS 02-24 21:50
PROVIDERS: Family Medicine; Internal Medicine; Nurse Practitioner Acute Care; Student in an Organized Health Care Education/Training Program; ADMIT Internal Medicine
DX: I63.81 Other cerebral infarction due to occlusion or stenosis of small artery (principal); E87.1 Hypo-osmolality and hyponatremia; G96.08 Other cranial cerebrospinal fluid leak; L76.32 Postprocedural hematoma of skin and subcutaneous tissue following other procedure; L76.34 Postprocedural seroma of skin and subcutaneous tissue following other procedure; N39.0 Urinary tract infection, site not specified; G81.91 Hemiplegia, unspecified affecting right dominant side; Y83.8 Other surgical procedures as the cause of abnormal reaction of the patient, or of later complication, without mention of misadventure at the time of the procedure; K59.00 Constipation, unspecified; H53.2 Diplopia; N40.0 Benign prostatic hyperplasia without lower urinary tract symptoms; E78.5 Hyperlipidemia, unspecified; F17.200 Nicotine dependence, unspecified, uncomplicated; R73.9 Hyperglycemia, unspecified; I45.10 Unspecified right bundle-branch block; R31.9 Hematuria, unspecified; R55 Syncope and collapse; D64.9 Anemia, unspecified; D69.6 Thrombocytopenia, unspecified; Z86.711 Personal history of pulmonary embolism; Z86.718 Personal history of other venous thrombosis and embolism; Z95.828 Presence of other vascular implants and grafts
CPT/HCPCS: 36415; 51700; 51702; 70450; 70496; 70498; 70551; 76857; 80048; 80053; 81001; 82607; 82746; 85025; 85610; 87077; 87086; 87186; 87507; 93005; 93010; 93306; 93971; 96365; 96375; 96376; 97110; 97112; 97116; 97162; 97166; 97535; 99285-25; A9270; G0378; J0696; J2405; J7030; Q9967

== ENCOUNTER 2025-03-19 09:14 | Emergency (ER) | payer BC ==
[~2025-03-19] VITALS: Ht 175.3 cm; Wt 66.2 kg
[~2025-03-19 09:14] MED LIST changes: +ALBU2.5V5 INH; +ATOR80 PO; +CEPH500 PO; +FAMO20 PO; +MASOPHEN325 M4 PO; +MIRALAX17 GM PO; +MOTION RELIEF25 MG PO; +ONDA4ODT MM; +SENN187 PO; +SIME80CH PO; +TAMS.4ER PO; +TRANSDERM-SCOP1 EA10 TD; +VISBIOME 112.51 EACH PO; +WARF3 PO
[2025-03-19 10:38] LABS: BASOPHILS PERCENT AUTO 1 % (0-2); EOSINOPHILS ABSOLUTE AUTO 0.09 K/mm3 (0.00-0.68); EOSINOPHILS PERCENT AUTO 1 % (0-6); Hematocrit 40.9 % (37.0-53.0); Hemoglobin 12.7 g/dL (13.5-17.5); IMMATURE GRAN ABSOLUTE AUTO 0.07 K/mm3 (0.00-0.10); IMMATURE GRAN PERCENT AUTO 1 % (0-1); LYMPHOCYTES ABSOLUTE AUTO 2.06 K/mm3 (0.84-5.20); LYMPHOCYTES PERCENT AUTO 25 % (21-46); MONOCYTES ABSOLUTE AUTO 1.16 K/mm3 (0.16-1.47); MONOCYTES PERCENT AUTO 14 % (4-13); Mean Corpuscular HGB 26.8 pg (26.0-34.0); Mean Corpuscular HGB Conc 31.1 g/dL (31.5-36.5); Mean Corpuscular Volume 86 fL (80-100); Mean Platelet Volume 8.8 fL (9.1-12.4); NEUTROPHILS PERCENT AUTO 57 % (41-73); Platelet Count 375 K/mm3 (150-400); RDW Coefficient Variation 15.9 % (11.7-14.2); RDW Standard Deviation 49.5 fL (35.1-46.3); Red Blood Cell Count 4.74 M/mm3 (4.30-5.90); White Blood Cell Count 8.18 K/mm3 (4.00-11.30)
[2025-03-19 10:52] LABS: International Normalized Ratio 1.52; Prothrombin Time Results 15.8 Sec (9.7-11.5)
[2025-03-19 11:01] LABS: Albumin, Blood 2.7 g/dL (3.4-5.0); Albumin/Globulin Ratio 0.7 (0.8-1.8); Bilirubin, Total 0.3 mg/dL (0.1-1.0); Bun/Creatinine Ratio 9.5 (12.0-20.0); Calcium, Blood 9.2 mg/dL (8.5-10.1); Creatinine, Blood 0.63 mg/dL (0.60-1.20); Globulin, Blood 3.9 g/dL (2.2-4.0); Potassium, Blood 4.2 mmol/L (3.5-5.5); Total Protein, Blood 6.6 g/dL (6.4-8.2)
[2025-03-19] MEDS ORDERED: Acetaminophen 500 MG Tab PO ONE (15:35)
[2025-03-19 16:04] VITALS: BP 117/78
== END 2025-03-19 16:15 | disposition home or self-care (01) ==
LOC: ER 09:14
PROVIDERS: Emergency Medicine
DX: R53.1 Weakness (principal); J44.9 Chronic obstructive pulmonary disease, unspecified; N40.0 Benign prostatic hyperplasia without lower urinary tract symptoms; F17.210 Nicotine dependence, cigarettes, uncomplicated; Z86.73 Personal history of transient ischemic attack (TIA), and cerebral infarction without residual deficits; Z86.718 Personal history of other venous thrombosis and embolism; Z86.711 Personal history of pulmonary embolism; Z79.01 Long term (current) use of anticoagulants; Z79.899 Other long term (current) drug therapy
CPT/HCPCS: 70450; 74177; 80053; 85025; 85610; 93005; 93010; 99285-25; A9270; Q9967

== ENCOUNTER 2025-07-09 11:47 | Emergency (ER) | payer BC ==
[~2025-07-09] VITALS: Ht 177.8 cm; Wt 72.6 kg
[~2025-07-09 11:47] MED LIST changes: +AMOCLA875 PO; +BISA10S PR; +Flomax0.4 MG PO; +Florastor250 MG PO; +MELATONIN5 M1 PO; +ONDA4 PO; +TIZA4 PO
[2025-07-09 12:19] VITALS: BP 132/83
[2025-07-09 12:40] LABS: BASOPHILS ABSOLUTE AUTO 0.06 K/mm3 (0.00-0.23); BASOPHILS PERCENT AUTO 1 % (0-2); EOSINOPHILS ABSOLUTE AUTO 0.18 K/mm3 (0.00-0.68); EOSINOPHILS PERCENT AUTO 2 % (0-6); Hematocrit 43.8 % (37.0-53.0); Hemoglobin 14.5 g/dL (13.5-17.5); IMMATURE GRAN ABSOLUTE AUTO 0.03 K/mm3 (0.00-0.10); IMMATURE GRAN PERCENT AUTO 0 % (0-1); LYMPHOCYTES ABSOLUTE AUTO 2.86 K/mm3 (0.84-5.20); LYMPHOCYTES PERCENT AUTO 31 % (21-46); MONOCYTES ABSOLUTE AUTO 1.07 K/mm3 (0.16-1.47); MONOCYTES PERCENT AUTO 12 % (4-13); Mean Corpuscular HGB Conc 33.1 g/dL (31.5-36.5); Mean Corpuscular Volume 82 fL (80-100); NEUTROPHILS ABSOLUTE AUTO 4.97 K/mm3 (1.96-9.15); NEUTROPHILS PERCENT AUTO 54 % (41-73); NRBC ABSOLUTE 0.00 K/mm3 (0.00-0.02); NRBC Auto 0.0 /100 WBC (0.0-0.2); Platelet Count 207 K/mm3 (150-400); RDW Coefficient Variation 14.1 % (11.7-14.2); RDW Standard Deviation 41.1 fL (35.1-46.3)
[2025-07-09 13:14] LABS: Prothrombin Time Results 24.2 Sec (9.7-11.5)
[2025-07-09 13:17] LABS: Alanine Aminotransfer (ALT/SGP 44.0 U/L (12-78); Albumin, Blood 3.1 g/dL (3.4-5.0); Albumin/Globulin Ratio 0.8 (0.8-1.8); Anion Gap 5.0 mmol/L (3-11); Aspartate Aminotrans (AST/SGOT 26.0 U/L (12-37); Bilirubin, Total 0.3 mg/dL (0.1-1.0); Blood Urea Nitrogen 13.0 mg/dL (8-24); CO2, Blood 30.0 mmol/L (21-32); Calcium, Blood 9.0 mg/dL (8.5-10.1); Chloride, Blood 108.0 mmol/L (98-108); Creatinine, Blood 0.85 mg/dL (0.60-1.20); Globulin, Blood 3.9 g/dL (2.2-4.0); Glucose, Blood 114.0 mg/dL (70-99); Magnesium, Blood 2.2 mg/dL (1.6-2.4); Phosphorus, Blood 3.8 mg/dL (2.5-4.9); Potassium, Blood 4.1 mmol/L (3.5-5.5); Sodium, Blood 139.0 mmol/L (136-145); Total Protein, Blood 7.0 g/dL (6.4-8.2)
[2025-07-09] MEDS ORDERED: Prochlorperazine Edisylate 10 mg Vial IV ONE (14:50)
[2025-07-09] MEDS ORDERED: Ketorolac Tromethamine 15mg Vial IV ONE (14:50)
[2025-07-09] MEDS ORDERED: DiphenhydrAMINE HCl 50 MG/ML 1ML Vial IV ONE (14:50)
[2025-07-09] MEDS ORDERED: NS 1,000 ML IV SCH (14:50)
== END 2025-07-09 16:05 | disposition home or self-care (01) ==
LOC: ER 11:47
PROVIDERS: Physician Assistant
DX: R51.9 Headache, unspecified (principal); J44.9 Chronic obstructive pulmonary disease, unspecified; F17.210 Nicotine dependence, cigarettes, uncomplicated; Z86.718 Personal history of other venous thrombosis and embolism; Z86.711 Personal history of pulmonary embolism; Z86.73 Personal history of transient ischemic attack (TIA), and cerebral infarction without residual deficits; Z79.01 Long term (current) use of anticoagulants; Z79.899 Other long term (current) drug therapy; Z59.89 Other problems related to housing and economic circumstances
CPT/HCPCS: 70450; 80053; 83735; 84100; 85025; 85610; 85730; 99284-25